=== PATIENT | male | born 1970 | race Caucasian/White ===

== ENCOUNTER 2024-05-23 20:14 | Emergency (ER) | payer BC ==
[2024-05-23] MEDS ORDERED: Boostrix 0.5 ML (Tdap) VIAL (>/=7 yrs of age) ONE (20:40)
[2024-05-23] MEDS ORDERED: Bacitracin 1 PK ONE (20:40)
== END 2024-05-23 21:15 | disposition home or self-care (01) ==
LOC: BURERS 20:14
DX: S66.321A Laceration of extensor muscle, fascia and tendon of left index finger at wrist and hand level, initial encounter (principal); W26.9XXA Contact with unspecified sharp object(s), initial encounter
CPT/HCPCS: 90715; 99282